=== PATIENT | female | born 1960 | race Native Hawaiian/Other Pacific Islander ===

== ENCOUNTER 2018-10-24 07:44 | Day surgery (SDC) | payer OTHER ==
[~2018-10-24] VITALS: Ht 30.5 cm; Wt 0.5 kg
== END 2018-10-24 09:45 | disposition home or self-care (01) ==
LOC: OR 07:44
PROC: 3E0T3BZ Introduction of Anesthetic Agent into Peripheral Nerves and Plexi, Percutaneous Approach (ICD-10-PCS; principal; 2018-10-24)
PROC: 3E0T33Z Introduction of Anti-inflammatory into Peripheral Nerves and Plexi, Percutaneous Approach (ICD-10-PCS; 2018-10-24)
DX: G58.8 Other specified mononeuropathies (principal); S22.43XA Multiple fractures of ribs, bilateral, initial encounter for closed fracture
CPT/HCPCS: J1100; J2001

== ENCOUNTER 2019-02-20 08:56 | Day surgery (SDC) | payer OTHER ==
[~2019-02-20] VITALS: Ht 30.5 cm; Wt 0.5 kg
== END 2019-02-20 11:15 | disposition home or self-care (01) ==
LOC: OR 08:56
PROC: 3E0T3TZ Introduction of Destructive Agent into Peripheral Nerves and Plexi, Percutaneous Approach (ICD-10-PCS; principal; 2019-02-20)
DX: M25.561 Pain in right knee (principal); M17.11 Unilateral primary osteoarthritis, right knee
CPT/HCPCS: J2001